=== PATIENT | female | born 2000 | race Asian ===

== ENCOUNTER 2021-09-20 17:51 | Emergency (ER) | payer OTHER ==
[~2021-09-20] VITALS: Ht 170.2 cm; Wt 63.5 kg
[2021-09-20] MEDS ORDERED: ACETAMINOPHEN 325 MG TABLET PO ONE (18:30)
[2021-09-20] MEDS ORDERED: ACETAMINOPHEN ES 500 MG TABLET ONE (19:20)
[2021-09-20] MEDS ORDERED: CYCL5TAB PO (19:26)
[2021-09-20] MEDS ORDERED: IBUP-1955 PO (19:26)
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
[2021-09-20 19:38] VITALS: BP 132/70
--- NOTE | 2021-09-20 19:39 | NUR ---
Patient discharged to home in stable condition. Written and verbal after care instructions given. Patient verbalizes understanding of instruction. PT ambulatory with a steady gait
== END 2021-09-20 19:32 | disposition home or self-care (01) ==
LOC: ER 18:05
DX: R07.89 Other chest pain (principal); M25.512 Pain in left shoulder; V49.49XA Driver injured in collision with other motor vehicles in traffic accident, initial encounter; Y93.89 Activity, other specified; Y92.413 State road as the place of occurrence of the external cause; Y99.8 Other external cause status
CPT/HCPCS: 71045-TC